=== PATIENT | female | born 1985 | race Caucasian/White ===

== ENCOUNTER → 2017-11-09 | Outpatient (CLI) | payer BC ==
[~2017-11-09] MED LIST: AMOX-559 PO; FLU60SYR36 IM; PREN-127 PO
[2017-11-09 12:19] LABS: PLATELET COUNT, AUTOMATED 242 K/uL (150-450)
== END ==
LOC: LAB 10:18
PROVIDERS: ATTEND Obstetrics & Gynecology
DX: Z34.91 Encounter for supervision of normal pregnancy, unspecified, first trimester (principal); Z11.3 Encounter for screening for infections with a predominantly sexual mode of transmission; Z11.8 Encounter for screening for other infectious and parasitic diseases
CPT/HCPCS: 36415; 81001; 85025; 86592; 86703; 86762; 86850; 86900; 86901; 87088; 87340; 87491; 87591

== ENCOUNTER → 2018-01-04 | Outpatient (CLI) | payer BC | LOC: LAB 10:43 | PROVIDERS: ATTEND Obstetrics & Gynecology | DX: R30.0 Dysuria (principal) | CPT/HCPCS: 87088 ==

== ENCOUNTER → 2018-01-13 | Outpatient (CLI) | payer BC ==
--- NOTE | 2018-01-13 16:08 | RADIOLOGY IMAGING REPORT ---
[place] [facility] [place] NAME: Vianney Dejesus : 1985 MR: [id number] V: [id number] EXAM DATE: ORDERING PHYSICIAN: BUD DEL TORO TECHNOLOGIST: Location: [facility] Patient: Vianney Dejesus : 1985 Visit/Account:[id number] Date of Sevice: 01/13/2018 [facility] OB ANATOMICAL SURVEY HISTORY: Anatomical survey ADDITIONAL HISTORY: None. COMPARISON: None. TECHNIQUE: Transabdominal imaging was performed for assessment of the fetus and maternal pelvic s tructures. Transvaginal imaging was not performed. FINDINGS: Intrauterine gestations: One. presentation: Variable. heart rate: 158 bpm. Amniotic fluid volume: Normal; VINITA 12.44 cm; MVP 3.57 cm. Placenta: Posterior and mid. Uterus: Gravid, otherwise unremarkable. Maternal adnexa/ovaries: Grossly unremarkable, ovaries not visualized.. Cervix: Grossly long and closed. Gestational Parameters: BPD: 4.29 cm; 19 weeks/ 0 days HC: 17.37 cm; 20 weeks/ 0 days AC: 14.98 cm; 20 weeks/ 2 days FL: 3.19 cm; 20 weeks/ 0 days Average ultrasound age (AUA): 19 weeks/ 6 days Estimated age based on LMP: 20 weeks/ 0 days Anatomic Survey: Intracranial structures, 4-chamber heart, stomach, kidneys, urinary bladder, spine, 3-vessel cord and cord insertion are unremarkable. Two upper and two lower extremities visualized. IMPRESSION: 1. Normal survey. The right and left ventricular outflow tracts and the arch are not well vis ualized due to position. Recommend patient return in 2-3 weeks for images of the right and lef t ventricular outflow tracts, the aorta, and the arch. 2. Ultrasound age 19 weeks/6 days consistent with gestational age based on LMP. Gestational age by LMP is 20 weeks/ 0 days with estimated date of delivery 06/02/2018. . Report Dictated By: Carlos Spencer at 01/13/2018 3:52 PM Report E-Signed By: Carlos Spencer at 01/13/2018 4:04 PM WSN:[email or web address]
== END ==
LOC: RAD 08:56
PROVIDERS: ATTEND Student in an Organized Health Care Education/Training Program
DX: Z34.90 Encounter for supervision of normal pregnancy, unspecified, unspecified trimester (principal); Z3A.19 19 weeks gestation of pregnancy

== ENCOUNTER → 2018-01-21 | Outpatient (CLI) | payer BC ==
--- NOTE | 2018-01-21 10:33 | RADIOLOGY IMAGING REPORT ---
FAC[place] [facility] [place]IENT NAME: Vianney Dejesus : 1985 MR: [id number] V: [id number] EXAM DATE: ORDERING PHYSICIAN: BUD DEL TORO TECHNOLOGIST: Location: [facility] Patient: Vianney Dejesus : 1985 Visit/Account:[id number] Date of Sevice: 01/21/2018 Exam type: OB LIMITED History: Follow up to complete anatomic survey Comparison: January 13, 2018. Findings: The patient returned for additional imaging. There was a single fetus in cephalic presentation. Yoshi centa is posterior. Additional views of the aortic arch/left ventricular outflow tract, cervic al thoracic and lumbar spine and palate were submitted which appeared unremarkable. The cervix was l jed and closed. VINITA measured 12.76 cm, MVP 3.7 cm IMPRESSION: 1. Additional imaging of the aortic arch/left ventricular outflow tract, cervical thoracic lumbar sp ine and palate appeared unremarkable Report Dictated By: Dinora Altamirano MD at 01/21/2018 10:17 AM Report E-Signed By: Dinora Altamirano MD at 01/21/2018 10:28 AM WSN:[email or web address]
== END ==
LOC: US 02:26
PROVIDERS: ATTEND Obstetrics & Gynecology
DX: Z34.90 Encounter for supervision of normal pregnancy, unspecified, unspecified trimester (principal)

== ENCOUNTER → 2018-02-25 | Outpatient (CLI) | payer BC ==
[~2018-02-25] MED LIST changes: +DIPH0.5D12 IM
[2018-02-25 09:55] LABS: PLATELET COUNT, AUTOMATED 205 K/uL (150-450)
== END ==
LOC: LAB 07:50
PROVIDERS: ATTEND Advanced Practice Midwife
DX: Z34.02 Encounter for supervision of normal first pregnancy, second trimester (principal)
CPT/HCPCS: 36415; 82950; 85025

== ENCOUNTER → 2018-05-06 | Outpatient (CLI) | payer BC ==
[~2018-05-06] MED LIST changes: +SERT-1 PO; +SERT25TA87 PO
== END ==
LOC: LAB 10:41
PROVIDERS: ATTEND Advanced Practice Midwife
DX: Z36.85 Encounter for antenatal screening for Streptococcus B (principal)
CPT/HCPCS: 87081

== ENCOUNTER → 2018-05-19 | Outpatient (CLI) | payer BC ==
--- NOTE | 2018-05-19 13:12 | RADIOLOGY IMAGING REPORT ---
FACILITY: [facility] - [place] PATIENT NAME: Vianney Dejesus : 1985 MR: [id number] V: [id number] EXAM DATE: ORDERING PHYSICIAN: BUD DEL TORO TECHNOLOGIST: [place] [facility] [place]ianney Dejesus : 1985 Visit/Account:[id number] Date of Sevice: 05/19/2018 OB LIMITED HISTORY: size less than dates COMPARISON: None FINDINGS: Intrauterine gestations: 1 presentation: Vertex heart rate: 136 bpm Amniotic fluid volume: VINITA 10.7 cm; Largest amniotic fluid pocket 4.8 cm Placenta: Posterior No placenta previa or retroplacental hemorrhage. Uterus: Gravid, otherwise normal Maternal adnexa: Negative Cervix: Closed Gestational Parameters: BPD: 9.4 cm; 38 weeks/ 1 days/77th percentile HC: 34.3 cm; 39 weeks/ 5 days/69th percentile AC: 32 cm; 36 weeks/ 0 days/13th percentile FL: 7.2 cm; 36 weeks/ 5 days/19 percentile Average ultrasound age (AUA): 37 weeks/ 5 days Estimated weight (EFW): 3011 grams +/- 440 grams. Fetus is in the 29th percentile based on LMP IMPRESSION: IUP of 37 weeks five days. [place] of 06/04/2018. This correlates within two days of the LMP [place] of 06/02 Report Dictated By: Ronak Graham MD at 05/19/2018 1:01 PM Report E-Signed By: Ronak Graham MD at 05/19/2018 1:06 PM WSN:[email or web address]
== END ==
LOC: US 11:45
PROVIDERS: ATTEND Obstetrics & Gynecology
DX: O26.843 Uterine size-date discrepancy, third trimester (principal); Z3A.37 37 weeks gestation of pregnancy
CPT/HCPCS: 76815

== ENCOUNTER 2018-06-02 14:55 | Inpatient (IN) | payer BC ==
[~2018-06-02] VITALS: Ht 167.6 cm; Wt 78.9 kg
[~2018-06-02 14:55] MED LIST changes: -DIPH0.5D12 IM; +DIPH0.5S2 IM
[2018-06-07] MEDS ORDERED: LR(*) 1000 ML BAG 1,000 ML IV PRN (01:05)
[2018-06-07] MEDS ORDERED: LIDOCAINE/SOD BICARB 8.4% SYR ONE (01:18)
[2018-06-07] MEDS ORDERED: fentaNYL CITR 100 MCG/2 ML AMP ONE (01:37)
[2018-06-07] MEDS ORDERED: OXYTOCIN 30 UNIT/D5LR 500 ML 500 ML ONE (01:38)
[2018-06-07 01:40] VITALS: BP 132/82; Ht 167.6 cm; Wt 78.9 kg
[2018-06-07] MEDS: fentaNYL CITR 100 MCG/2 ML AMP IVP PRN ×2 (01:40→02:28)
[2018-06-07 01:54] LABS: PLATELET COUNT, AUTOMATED 201 K/uL (150-450)
[2018-06-07] MEDS ORDERED: FAMOTIDINE(*) 20MG/50ML PREMIX 50 ML IVPB PRN (02:06)
[2018-06-07] MEDS ORDERED: LR(*) 1000 ML BAG 1,000 ML IV SCH (02:06)
[2018-06-07] MEDS ORDERED: OXYTOCIN 30 UNIT/D5LR 500 ML 500 ML IV PRN (02:06)
[2018-06-07] MEDS ORDERED: ceFAZolin(*) 2GM/D5W 50ML 50 ML IVPB PRN (02:06)
[2018-06-07] MEDS ORDERED: LIDOCAINE 1% LOCAL 300 MG/30ML INJ PRN (02:10)
[2018-06-07] MEDS ORDERED: LIDOCAINE/SOD BICARB 8.4% SYR SC PRN (02:10)
[2018-06-07] MEDS ORDERED: METOCLOPRAMIDE 10 MG/2 ML SDV IVP PRN (02:10)
--- NOTE | 2018-06-07 02:57 | History & Physical ---
History of Present Illness Age of Patient: 32 : 1 Para or TPAL: 0 EDC per LMP: Jun 02, 2018 Estimated Gestational Age: 40.5 Chief Complaint This is a 32-year-old at 40 weeks and 5 days by LMP and first trimester ultrasound with a estimated date of delivery of 06/02/18. She reports the onset of contractions started on 06/06/18 @ 0200. Labored throughout the day at home with good movement, no leaking of fluid, or vaginal bleeding. She did report some vaginal spotting last Wednesday when she thinks she lost her mucous plug. She arrived to labor and delivery in active labor at 30 on 06/07/18. She denies headaches, vision changes, right upper quadrant pain. She feels her contractions in her abdomen but also in her back of an unmedicated she is unsure if she wants the epidural but may want IV fentanyl for pain. Her pain is at the bedside and appears supportive. History Patient's Blood Type: O Positive Rubella Status: Non-Immune Group B Strep Screen: Negative Allergies: Coded Allergies: No Known Drug Allergies (Unverified , 12/09/17) Social History: Denies smoking, tobacco, or illicit drug use including marijuana. Patient is and monogamous Med Rec Home Meds Active Scripts Sertraline Hcl (ZOLOFT) 50 Mg Tablet, 1 TAB PO QDAY, #30 TAB 4 Refills 1 tab PO daily, start after taking 25 mg tabs Prov:LEONOR PALOMINO [facility] 03/28/18 Reported Medications Vits W-Ca,Fe,Fa(<1MG) ( VITAMINS) 1 Each Tablet, 1 EACH PO DAILY, TAB 11/09/17 Review of Systems Constitutional: No Fever Eyes: No Vision Change, No Photophobia Cardiovascular: No Chest Pain Respiratory: No Shortness of Breath, No Cough Gastrointestinal: Nausea; No Vomiting, No Diarrhea, No Constipation; Abdominal Pain (contraction pain) Genitourinary: No Dysuria, No Hematuria Psychiatric: Depression (currently on zoloft 50mg po daily: Mood stable), Anxiety Exam General Exam Vital Signs Vital Signs Date Time Temp Pulse Resp B/P (MAP) Pulse Ox O2 Delivery O2 Flow Rate FiO2 06/07/18 15:11 98.7 77 16 115/59 (77) 94 Room Air General Apperance: Alert/Awake/No Acute Distress Neuro: No Gross deficits Eyes: Normal Extraocular Movement & Vison, PERRLA ENT: Normal Neck: No Masses Cardiovascular: Regular Rate and Rhythm Respiratory: No Respiratory Distress, Clear to Auscultation Abdomen: Gravid - Non-Tender, RUQ Non-Tender : Normal Musculoskeletal: No Weakness/Pain Psychological: Alert & Oriented X3, Appropriate Mood & Affect Vaginal Discharge/Fluid?: Bloody Show Cervical Dialation: 9 Cervical Effacement (%): 100 Cervical Consistency: Soft Cervical Position: Anterior Station: +1 Presentation: Vertex Uterine Contractions(Q min): 3 Uterine Contraction Strength: Strong UC Resting Tone: Soft Fetus Feeling Movement?: Yes Estimated Weight(grams): 3000 Heart Tone Variabilty: Moderate FHT Accelerations: Present, 15X15 (recurrent variables with rapid return to baseline) FHT Decelerations: Variable FHT Category: II (reccurent with rapid return to baseline) Medical Decision Making Data Points Result Diagram: 06/07/18 0143 Assessment and Plan Hospital Day: 1 WOOD BORER Assessment: Stable WOOD BORER Plan: Routine Labor Care Problems: (1) Active labor at term Onset Date: ~ 06/07/2018 Status: Acute Assessment & Plan: TS is a 32 y.o. at 40w5d wks with an Estimated Date of Delivery: 06/02/18 dated by LMP and first trimester US arrive to FCU in active labor at 0120 on 06/07/18 Labor state: Active labor, approaching transition. Making excellent cervical change with adequate contraction pattern. Encourage position changes, frequent BR use, and upright positions to facilitate descent. BOW intact. AROM R/B/A reviewed. Pt desires expectant management at this time well-being: Category II FHT for recurrent variables, but rapid return to baseline with moderate variability: continuous monitoring for CAT II FHT. Maternal uterine resuscitation as needed Maternal well-being: VSS, afebrile and normotensive, BBOW PNL: GBS Neg, Type/Rh O+, rubella Pain Management: Continuous labor support, positions changes, controlled breathing, IV fentanyl as needed. Pt declines epidural at this time Feed: Breast c/b: * S<D: Growth US reassuring 05/19/18 29%tile * Rubella nonimmune- MMR Anticipate NSVB, provider continuously at bedside for labor support LEONOR PALOMINO CNM Jun 07, 2018 02:57
[2018-06-07] MEDS ORDERED: APAP/HYDROCODONE 325/5 TAB PO PRN (05:55)
[2018-06-07] MEDS ORDERED: LANOLIN OINT 7 GM TUBE TP PRN (05:55)
[2018-06-07] MEDS ORDERED: BENZOCAINE 20% 60 ML BTL TP PRN (05:55)
[2018-06-07] MEDS ORDERED: MAGNESIUM HYDROXIDE* 30ML UDCP PO PRN (05:55)
[2018-06-07] MEDS ORDERED: GLYCERIN/WITCH HAZEL LEAF 1 PK TOP PRN (05:55)
[2018-06-07] MEDS ORDERED: HYDROCORTISONE 2.5% CR 30GM TB PR PRN (05:55)
--- NOTE | 2018-06-07 05:59 | OB Delivery Note ---
Delivery Note Vaginal Delivery Type: Spont. Vaginal Delivery Delivery Date: Jun 07, 2018 Estimated Gestational Age(wks): 40.5 Delivery Anesthesia: IV Opiate Sex: Female Weight (gms): 3045 Apgars: 1 Minute, 5 Minute Repair Needed: Vaginal, Perineal, 3rd Degree (3A repaired by Dr. Waters) Estimated Blood Loss: 200 Delivery Complications: Laceration, Nuchal Cord (x2 and body cord) Notes: TS is a 32 -year-old at 40 weeks and 5 days by LMP and first trimester ultrasound with an estimated date of delivery of 06/02/18 with OOC on 06/06/18 at 0200. Pt was admitted to the family care unit at 0120 on 06/07/18 in active labor. Cervical exam on admission was 7/100/0. She had SROM on 06/07/18 at 0328 for moderate amount of clear fluid. Pt was GBS neg. FHR was CAT II primarily throughout first stage with recurrent variables with rapid to return to baseline and moderate variability. Pt utilized continuous labor support, controlled breathing and 2 doses of IV fentanyl primarily for pain management. Pt was completely dilated on 06/07/18 at 0310 and pt began spontaneously pushing at that time. She pushed for approximately [address] Waters was notified of patient progress and the FHR CAT II with recurrent variables with rapid return to baseline. At 0430 he was notified of the recurrent variables and slower return to baseline and to be prepared to come in to assist if needed. At 0450 Dr. Vital was notified of status. At 0459 pt had a NSVB of live male infant APGARS 7/9 weighing 6bs 4oz, 3045g. The head delivered spontaneously in the OA position and restituted SALLY with two nuchal cords which were easily red uced at the perineum and one body cord reduced after . The anterior shoulder was delivered a traumatically and the posterior shoulder followed. Body delivered easily. Face was wiped and then placed on the maternal abdomen. The was dried and stimulated and noted to have a spontaneous cry and spontaneous movement of all [address] Vital was called off. Cord was cl amped X 2 by CNM after pulsations ceased and cut by patient's spouse. Baby was taken to the warmer to assess respiratory status and suctioned. [facility] was [facility] to [facility] shortly after for skin to skin. Mother was in left side lying position for delivery. The placenta and membranes delivered spontaneous and intact with a 3 vessel cord after gentle downward traction within 10 minutes of delivery. 30 units of Pitocin was placed in 500cc IV to firm the uterus and started immediately after placenta delivery. Upon inspection of the perineum a third degree A perineal laceration was noted as well as s second degree vaginal laceration and repaired by Dr. Waters using 2.0 and 3.0 Vicryl under 1% lidocaine. Lacerations were well approximated. Hemostasis observed. EBL 200 with fundus firm with minimal bleeding. Mom and baby were left in stable condition with the FCU nurses. "I personally examined the patient and there are no unintended foreign objects in the vagina, and all sponge, lap, and needle counts were correct." Margie Bonilla CNM was present throughout the entire delivery and Dr. Don Waters was my OB backup and performed the 3rd degree laceration repair Bench Repair Technician in Attendence: No (Peds called, but not needed so called off) MARGIE BONILLA CNM Jun 07, 2018 05:59
[2018-06-07 07:15] VITALS: BP 123/58
[2018-06-07] MEDS: IBUPROFEN 800 MG TAB PO SCH ×2 (07:39→17:08)
[2018-06-07] MEDS: DOCUSATE CALCIUM 240 MG CAP PO SCH ×2 (09:04→20:15)
[2018-06-07] MEDS: POLYETHYLENE GLYCOL 17 GM PKT PO SCH (09:04)
[2018-06-07 10:42] VITALS: BP 129/56
[2018-06-07 15:11] VITALS: BP 115/59
[2018-06-07] MEDS ORDERED: MEASLES,MUMP,RUBELLA VAC 0.5ML SUBQ ONE (15:25)
[2018-06-07] MEDS ORDERED: SERTRALINE HCL 50 MG TAB PO SCH (15:40)
[2018-06-07 19:50] VITALS: BP 123/67
[2018-06-07] MEDS: SERTRALINE HCL 50 MG TAB PO SCH (20:16)
[2018-06-08 01:25] VITALS: BP 120/72
[2018-06-08] MEDS: IBUPROFEN 800 MG TAB PO SCH ×3 (01:29→16:20)
[2018-06-08 05:00] VITALS: BP 113/54
[2018-06-08 07:45] VITALS: BP 100/55
[2018-06-08] MEDS: POLYETHYLENE GLYCOL 17 GM PKT PO SCH (08:50)
[2018-06-08] MEDS: DOCUSATE CALCIUM 240 MG CAP PO SCH ×2 (08:50→22:26)
[2018-06-08 11:05] VITALS: BP 105/55
--- NOTE | 2018-06-08 11:16 | OB/GYN Progress Note ---
OB Subjective Progress Notes Subjective Pt is feeling well today. She has been with a good latch and has less nipple pain today. She has been up, showered and voiding well. She has not had a BM yet but is taking miralax and colace and will continue this for 3A laceration. GI: POS Flatus; NEG Nausea, NEG Vomiting, NEG Bowel Movement : Voiding Well, Vaginal Bleeding, Scant Pain: Mild Neurological: No Headache Eyes: No Visual Disturbances OB Objective Physical Exam Vital Signs Date Time Temp Pulse Resp B/P (MAP) Pulse Ox O2 Delivery O2 Flow Rate FiO2 06/08/18 07:45 98.0 78 16 100/55 (70) Room Air 06/07/18 15:11 94 Intake and Output 06/08/18 07:00 Intake Total 2730 ml Balance 2730 ml Intake Oral 2730 ml # Voids 5 General Appearance: Alert/Awake/No Acute Distress Neurological: No Gross deficits Eyes: Normal Extraocular Movement & Vison, PERRLA Respiratory: No Respiratory Distress, Clear to Auscultation Abdomen: Soft, Non-Tender, Non-Distended, Fundus Firm Incision: Other (3rd degree perineal laceration is healing well) : Normal Musculoskeletal: No Weakness/Pain Extremities: No Cyanosis,Clubbing or Edema Integumentary: Skin Intact without Lesions or Rash Psychological: Alert & Oriented X3, Appropriate Mood & Affect Result Diagram: 06/08/18 0538 Assessment and Plan Hospital Day: 1 DIRECTOR MOTION PICTURE Assessment: Stable DIRECTOR MOTION PICTURE Plan: Routine Post- Care, Advance Diet, Advance Activity, Discharge Home Tomorrow Problems: (1) Active labor at term Onset Date: ~ 06/07/2018 Status: Resolved (2) (normal spontaneous vaginal delivery) Status: Resolved (3) Third degree perineal laceration during delivery, IIIa Onset Date: ~ 06/07/2018 Status: Acute Assessment & Plan: Encouraged pt to use carmen bottle, dermaplast, and tucks pads for perineum as well as take ibuprofen for the next 7 days to help with discomfort.. Advised pt to take Miralax and Colace every day for the next 2 weeks to help soften BM and to use MOM if needed. Reviewed s/s of separation or signs of infection. (4) care and examination immediately after delivery Onset Date: ~ 06/07/2018 Status: Acute Assessment & Plan: Pt is s/p day # 1 after a of a female infant. During delivery she sustained a 3rd degree A laceration which was repaired by Dr. Waters with good success and approximation. Pt is voiding well and passing gas. She is tolerating her perineal pain with ibuprofen. seems to be going well. We will plan for her to stay until tomorrow to have more help with . Baby is doing well. We reviewed s/s of mastitis, endometritis, laceration infection, depression/anxiety worsen, DVTs and all questions were answered. LEONOR PALOMINO CNM June 08, 2018 11:15
[2018-06-08] MEDS ORDERED: IBUP800T37 PO (12:32)
[2018-06-08 16:20] VITALS: BP 111/52
[2018-06-08 20:46] VITALS: BP 119/59
[2018-06-08] MEDS: SERTRALINE HCL 50 MG TAB PO SCH (22:26)
[2018-06-09] MEDS: IBUPROFEN 800 MG TAB PO SCH ×2 (01:00→09:05)
[2018-06-09 06:00] VITALS: BP 117/60
--- NOTE | 2018-06-09 07:48 | OB/GYN Progress Note ---
OB Subjective Progress Notes Subjective Doing well. Pain controlled with oral medications. Tolerating regular diet. Ambulating. Voiding. Normal lochia. No preeclampsia symptoms. OB Objective Physical Exam Vital Signs Date Time Temp Pulse Resp B/P (MAP) Pulse Ox O2 Delivery O2 Flow Rate FiO2 06/09/18 06:00 98.0 72 18 117/60 (79) 94 Room Air Intake and Output 06/09/18 07:00 Intake Total 120 ml Balance 120 ml Intake Oral 120 ml # Voids 3 General Appearance: Alert/Awake/No Acute Distress Neurological: No Gross deficits Eyes: Normal Extraocular Movement & Vison, PERRLA Cardiovascular: Normal Rhythm & Peripheral Pulses, Regular Rate and Rhythm Respiratory: No Respiratory Distress, Clear to Auscultation Abdomen: Soft, Non-Tender, Non-Distended, Fundus Firm Musculoskeletal: No Weakness/Pain Extremities: No Cyanosis,Clubbing or Edema Integumentary: Skin Intact without Lesions or Rash Psychological: Alert & Oriented X3, Appropriate Mood & Affect Result Diagram: 06/08/18 0538 Assessment and Plan Problems: (1) care and examination immediately after delivery Onset Date: ~ 06/07/2018 Status: Acute Assessment & Plan: PPD#2. Meeting milestones. Desires discharge to home t [place]. Discussed routine expectations. Questions answered. Follow up in clinic in 2wks for check. (2) Third degree perineal laceration during delivery, IIIa Onset Date: ~ 06/07/2018 Status: Acute Assessment & Plan: Encouraged pt to use carmen bottle, dermaplast, and tucks pads for perineum as well as take ibuprofen for the next 7 days to help with discomfort.. Advised pt to take Miralax and Colace every day for the next 2 weeks to help soften BM and to use MOM if needed. Reviewed s/s of separation or signs of infection. (3) (normal spontaneous vaginal delivery) Status: Resolved BUD DEL TORO MD June 09, 2018 07:48
[2018-06-09] MEDS ORDERED: LOR5/325 PO (07:49)
--- NOTE | 2018-06-09 07:54 | OB/GYN Discharge Summary ---
MARGIE PALOMINO [facility] 06/08/18 1245: Discharge Summary Reason for Hosp/Final Diag: (1) Active labor at term Onset Date: ~ 06/07/2018 Status: Resolved (2) (normal spontaneous vaginal delivery) Status: Resolved (3) Third degree perineal laceration during delivery, IIIa Onset Date: ~ 06/07/2018 Status: Acute Hospital Course & Plan: Encouraged pt to use carmen bottle, dermaplast, and tucks pads for perineum as well as take ibuprofen for the next 7 days to help with discomfort.. Advised pt to take Miralax and Colace every day for the next 2 weeks to help soften BM and to use MOM if needed. Reviewed s/s of separation or signs of infection. (4) care and examination immediately after delivery Onset Date: ~ 06/07/2018 Status: Acute Hospital Course & Plan: Admission Diagnoses: Active labor at term Reason for Hospitalization: labor, and care Procedures Performed: Laceration repair by OB Delivery Type: Hospital Course: TS is a 32 -year-old at 40 weeks and 5 days by LMP and first trimester ultrasound with an estimated date of delivery of 06/02/18 with OOC on 06/06/18 at 0200. Pt was admitted to the family care unit at 0120 on 06/07/18 in active labor. Cervical exam on admission was 7/100/0. She had SROM on 06/07/18 at 0328 for moderate amount of clear fluid. Pt utilized continuous labor support, controlled breathing and 2 doses of IV fentanyl primarily for pain management. Pt was completely dilated on 06/07/18 at 0310 and pt began spontaneously pushing at that time. She pushed for approximately [address] Waters was notified during pushing of the patient's progress and the FHR CAT II with recurrent variables with rapid return to baseline He was notified of the recurrent variables and slower return to baseline and to be prepared to come in to assist if needed, but at 0459 pt had a NSVB of live female infant APGARS 7/9 weighing 6bs 4oz, 3045g and no vaginal assisted delivery was needed. She sustained a 3A laceration which was repaired by Dr. Waters. Her stay was uneventful. Delivery Information: See delivery note Estimated blood loss: 200 Episiotomy: none Laceration: 3A perineal and 2nd degree vaginal Pain Management: continuous labor support and 2 doses of IV fentanyl Subjective: pt is feeling well today and ready to go home Abdominal pain: none Perineal pain: mild controlled with ibuprofen, dermaplast, and tucks Vaginal bleeding: minimal and red without clots Flatus: yes UTI symptoms: none Feeding modality: Breast Problems with breast feeding: none Bowel movement: Ambulating: yes Preeclampsia symptoms: denies, MERCHANT, vision changes, and RUQ pain Nausea/vomiting: none experience: She and her are very happy that I was able to be there for continuous labor support. Tia was excited that she was able to do it without an epidural control: not sure yet, but not planning on having more kids. Will discuss at the 2 week PP visit Objective Exam: Vitals: normotensive, afebrile Breasts: Soft, non tender, nipples everted without cracking or bleeding, + colostrum Abdomen: FF 2<U Perineum: healing well with good approximation, slight bruising without much swelling Lochia: minimal, no clots Extremities: no calf pain or redness Disposition: Patient discharged to home in medically stable condition. No Known Allergies Medication Instructions Given to the Patient at Discharge: Script to be sent to [facility] Take Ibuprofen 800mg PO TID for 5-7 days as needed Follow-up Appointment: 2&6 weeks with Margie Palomino CNM Activity/Restrictions: Pelvic rest; nothing in vagina for six weeks. Return Precautions: Patient instructed to call the clinic or return to hospital for fever > 101 degree F; chills; severe nausea or vomiting; inability to tolerate anything by mouth for > 24 hours; increasingly severe abdominal/pelvic pain; foul smelling vaginal discharge; vaginal bleeding > 1 pad per hour for > 2 hours; separation, drainage, or redness of incision or laceration site. Reviewed depression and pre-eclampsia s/s and when to seek care. Lates Vital Signs Vital Signs Date Time Temp Pulse Resp B/P (MAP) Pulse Ox O2 Delivery O2 Flow Rate FiO2 06/08/18 11:05 98.4 62 16 105/55 (72) Room Air 06/07/18 15:11 94 Weight (Pounds): 174 Result Diagram: 06/08/18 0538 Condition: Improved Discharge: Home Home Meds Active Scripts Hydrocodone Bit/Acetaminophen (HYDROCODON-ACETAMINOPHEN 5-325) 1 Each Tablet, 1 EACH PO Q6H PRN for pain, #10 TAB 0 Refills Prov:BUD DEL TORO MD 06/09/18 Ibuprofen (IBUPROFEN) 800 Mg Tablet, 800 MG PO Q8H, #20 TAB 0 Refills Prov:MARGIE PALOMINO CNM 06/08/18 Sertraline Hcl (ZOLOFT) 50 Mg Tablet, 1 TAB PO QDAY, #30 TAB 4 Refills 1 tab PO daily, start after taking 25 mg tabs Prov:MARGIE PALOMINO CNM 03/28/18 Reported Medications Vits W-Ca,Fe,Fa(<1MG) ( VITAMINS) 1 Each Tablet, 1 EACH PO DAILY, TAB 11/09/17 Follow up Referrals: CENTRAL SERVICES TECH @ [facility] with MARGIE PALOMINO CNM, KIM N MD 06/09/18 0754: Discharge Summary Reason for Hosp/Final Diag: (1) care and examination immediately after delivery Onset Date: ~ 06/07/2018 Status: Acute Hospital Course & Plan: PPD#2. Meeting milestones. Desires discharge to home today. Discussed routine expectations. Questions answered. Follow up in clinic in 2wks for check. (2) Third degree perineal laceration during delivery, IIIa Onset Date: ~ 06/07/2018 Status: Acute Result Diagram: 06/08/18 0538 Condition: Improved Discharge: Home, Self Half-Way Meds Active Scripts Hydrocodone Bit/Acetaminophen (HYDROCODON-ACETAMINOPHEN 5-325) 1 Each Tablet, 1 EACH PO Q6H PRN for pain, #10 TAB 0 Refills Prov:BUD DEL TORO MD 06/09/18 Ibuprofen (IBUPROFEN) 800 Mg Tablet, 800 MG PO Q8H, #20 TAB 0 Refills Prov:MARGIE PALOMINO CNM 06/08/18 Sertraline Hcl (ZOLOFT) 50 Mg Tablet, 1 TAB PO QDAY, #30 TAB 4 Refills 1 tab PO daily, start after taking 25 mg tabs Prov:MARGIE PALOMINO CNM 03/28/18 Reported Medications Vits W-Ca,Fe,Fa(<1MG) ( VITAMINS) 1 Each Tablet, 1 EACH PO DAILY, TAB 11/09/17 Follow up Referrals: CENTRAL SERVICES TECH @ [facility] with MARGIE PALOMINO CNM Discharge Diet: As Tolerates Discharge Activity: No Heavy Lifting > 10lb, Pelvic Rest MARGIE PALOMINO CNM June 08, 2018 12:45 BUD DEL TORO MD June 09, 2018 07:54
[2018-06-09 09:00] VITALS: BP 123/63
[2018-06-09] MEDS: DOCUSATE CALCIUM 240 MG CAP PO SCH (09:05)
[2018-06-09] MEDS: POLYETHYLENE GLYCOL 17 GM PKT PO SCH (09:05)
== END 2018-06-09 10:22 | disposition home or self-care (01) | DRG 768 ==
LOC: OB 06-07 01:02 → OBSVTOIN 06-07 01:02
PROVIDERS: ADMIT Student in an Organized Health Care Education/Training Program; ATTEND Student in an Organized Health Care Education/Training Program
PROC: 10E0XZZ Delivery of Products of Conception, External Approach (ICD-10-PCS; principal; 2018-06-07)
PROC: 0DQR0ZZ Repair Anal Sphincter, Open Approach (ICD-10-PCS; 2018-06-07)
DX: O69.82X0 Labor and delivery complicated by other cord entanglement, without compression, not applicable or unspecified (principal); Z37.0 Single live birth; O70.21 Third degree perineal laceration during delivery, IIIa; O76 Abnormality in fetal heart rate and rhythm complicating labor and delivery; Z3A.40 40 weeks gestation of pregnancy
CPT/HCPCS: 36415; 85025; 85027; 86850; 86900; 86901; 90471; 90707; J2590; J3010; J7120